=== PATIENT | female | born 1985 | race Caucasian/White ===

== ENCOUNTER 2016-12-10 07:17 | Emergency (ER) | payer OTHER ==
[~2016-12-10] VITALS: Ht 149.9 cm; Wt 70.8 kg
[~2016-12-10 07:17] MED LIST: CIPRO750 MG PO; LAC PO
[2016-12-10 07:23] VITALS: BP 134/81
== END 2016-12-10 08:13 | disposition home or self-care (01) ==
LOC: ED 07:17
DX: T78.1XXA Other adverse food reactions, not elsewhere classified, initial encounter (principal); X58.XXXA Exposure to other specified factors, initial encounter; Z88.5 Allergy status to narcotic agent
CPT/HCPCS: J7512; Q0163

== ENCOUNTER 2018-01-12 09:55 | Emergency (ER) | payer OTHER ==
[~2018-01-12] VITALS: Ht 149.9 cm; Wt 72.6 kg
[2018-01-12 10:04] VITALS: Ht 149.9 cm; Wt 72.6 kg
[2018-01-12 10:40] LABS: BASOPHIL % 1.5 % (0-2); PLATELET COUNT 367 x10^3mcL (130-400)
[2018-01-12 10:41] LABS: CALCIUM 8.9 mg/dL (8.5-10.1); CARBON DIOXIDE 27.3 mmol/L (21-32); CHLORIDE SERUM 104 mmol/L (98-107); CREATININE SERUM 0.6 mg/dL (0.6-1.0); GFR1 > 60 mL/min; GLUCOSE SERUM 95 mg/dL (74-106); POTASSIUM SERUM 4.1 mmol/L (3.5-5.1); SODIUM SERUM 139 mmol/L (136-145)
[2018-01-12 10:47] LABS: RED CELL DISTRIBUTION WIDTH 11.4 % (11.5-14.5)
[2018-01-12 10:53] LABS: ALBUMIN 3.8 g/dL (3.4-5.0); ALKALINE PHOSPHATASE 83 U/L (46-116); ALT/SGPT 37 U/L (14-59); AST/SGOT 24 U/L (15-37); BILIRUBIN TOTAL 0.44 mg/dL (0.20-1.00); TOTAL PROTEIN, SERUM 7.8 g/dL (6.4-8.2)
[2018-01-12 12:14] VITALS: BP 128/82
== END 2018-01-12 12:37 | disposition home or self-care (01) ==
LOC: ED 09:55
PROVIDERS: Emergency Medicine
DX: N20.0 Calculus of kidney (principal); N39.0 Urinary tract infection, site not specified; N28.1 Cyst of kidney, acquired; J45.909 Unspecified asthma, uncomplicated; Z88.5 Allergy status to narcotic agent
CPT/HCPCS: J0696; J1885